=== PATIENT | male | born 1975 | race American Indian/Alaskan Native ===

== ENCOUNTER 2017-08-07 05:37 | Day surgery (SDC) | payer SELFPAY ==
[2017-08-07] MEDS ORDERED: Sodium Chloride 0.9% 2.5 ML Syringe FLUSH PRN (06:20)
[2017-08-07] MEDS ORDERED: Sodium Chloride 0.9% 10 ML Syringe FLUSH PRN (06:20)
[2017-08-07] MEDS ORDERED: cefOXitin 2 GM in Premix Bag 1 BAG IV ONE (06:20)
[2017-08-07] MEDS ORDERED: Lactated Ringers 1,000 ML IV SCH (06:30)
[2017-08-07] MEDS ORDERED: Bupivacaine 25%/EPINEPHrine/PF 30 ML ONE (06:38)
--- NOTE | 2017-08-07 06:38 | PCM.SN ---
- Free Text/Narrative Note: pt seen, chart reviewed; admitting hp dictated, [id number]; in summary, pt has acute appendicitis, will proceed w appendectomy, lap vs open, r/b dw pt re bleeding/infection/possible drain placement/po abscess/postop course; pt concurs and proceed;
[2017-08-07] MEDS ORDERED: Propofol 200 MG/20 ML SDV ONE ×2 (06:41→08:22)
[2017-08-07] MEDS ORDERED: fentaNYL 100 MCG/2 ML SDV ONE (06:41)
[2017-08-07] MEDS ORDERED: Ondansetron 4 MG/2 ML SDV ONE (06:42)
[2017-08-07] MEDS ORDERED: diphenhydrAMINE 50 MG/ML SDV ONE (06:42)
[2017-08-07] MEDS ORDERED: Rocuronium 10 MG/ML 10 ML Syringe ONE (06:42)
[2017-08-07] MEDS ORDERED: Lidocaine 2% 5 ML SDV ONE (06:42)
[2017-08-07] MEDS ORDERED: Neostigmine Methylsulfate 1 MG/ML 5 ML Syringe ONE (06:42)
[2017-08-07] MEDS ORDERED: Ketorolac 30 MG/ML SDV ONE (06:42)
[2017-08-07] MEDS ORDERED: HYDROmorphone 2 MG/ML Syringe ONE (07:15)
[2017-08-07] MEDS ORDERED: fentaNYL 100 MCG/2 ML SDV IVPUSH PRN (07:38)
--- NOTE | 2017-08-07 07:44 | PCM.PREANE ---
Preanesthetic Assessment - Procedure Proposed Procedure: laparoscopic appendectomy - Anesthesia/Transfusion/Family Hx Anesthesia History: No Prior Anesthesia Family History of Anesthesia Reaction: No - Review of Systems General: No Symptoms Pulmonary: No Symptoms Cardiovascular: No Symptoms Gastrointestinal: Abdominal Pain Neurological: No Symptoms Other: Reports: None - Physical Assessment NPO Status Date: 08/06/17 NPO Status Time: 06:30 O2 Sat by Pulse Oximetry: 95 Respiratory Rate: 18 Vital Signs: Last Vital Signs Temp 37.0 C 08/07/17 06:00 Pulse 72 08/07/17 06:00 Resp 18 08/07/17 06:00 BP 126/78 08/07/17 06:00 Pulse Ox 95 08/07/17 06:00 ASA Class: 1E Mental Status: Alert & Oriented x3 Airway Class: Mallampati = 2 Dentition: Reports: Normal Dentition Thyro-Mental Finger Breadths: 4 Mouth Opening Finger Breadths: 4 ROM/Head Extension: Full Lungs: Clear to Auscultation, Normal Respiratory Effort Cardiovascular: Regular Rate, Regular Rhythm - Allergies Allergies/Adverse Reactions: Allergies Allergy/AdvReac Type Severity Reaction Status Date / Time No Known Allergies Allergy Verified 08/07/17 06:11 - Blood Blood Available: No - Anesthesia Plan Pre-Op Medication Ordered: None - Acknowledgements Anesthesia Type Planned: General Anesthesia Pt an Appropriate Candidate for the Planned Anesthesia: Yes Alternatives and Risks of Anesthesia Discussed w Pt/Guardian: Yes Pt/Guardian Understands and Agrees with Anesthesia Plan: Yes PreAnesthesia Questionnaire - HOME MEDS Home Medications: Home Meds . [No Known Home Meds] 08/07/17 [History] - CURRENT (IN HOUSE) MEDS Current Meds: Current Medications Lactated Ringer's (Ringers, Lactated) 1,000 mls @ 150 mls/hr IV ASDIRECTED KAY Last Admin: 08/07/17 06:33 Dose: 150 mls/hr Sodium Chloride (Saline Flush) 10 ml FLUSH ASDIRECTED PRN PRN Reason: Keep Vein Open Sodium Chloride (Saline Flush) 2.5 ml FLUSH ASDIRECTED PRN PRN Reason: Keep Vein Open Discontinued Medications Diphenhydramine HCl (Benadryl) Confirm Administered Dose 50 mg .ROUTE .STK-MED ONE Stop: 08/07/17 06:43 Fentanyl (Sublimaze) Confirm Administered Dose 100 mcg .ROUTE .STK-MED ONE Stop: 08/07/17 06:42 Glycopyrrolate () Confirm Administered Dose 1 mg .ROUTE .STK-MED ONE Stop: 08/07/17 06:43 Hydromorphone HCl (Dilaudid) Confirm Administered Dose 2 mg .ROUTE .STK-MED ONE Stop: 08/07/17 07:16 Cefoxitin Sodium 2 gm/ Premix 50 mls @ 100 mls/hr IV ONETIME ONE Stop: 08/07/17 06:49 Last Admin: 08/07/17 06:33 Dose: 100 mls/hr Bupivacaine HCl/Epinephrine Bitart (Sensorc Mpf 0.25%-Epi 1:[id number]) Confirm Administered Dose 30 mls @ as directed .ROUTE .STK-MED ONE Stop: 08/07/17 06:39 Ketorolac Tromethamine (Toradol) Confirm Administered Dose 30 mg .ROUTE .STK- MED ONE Stop: 08/07/17 06:43 Lidocaine (Xylocaine-Mpf 2%) Confirm Administered Dose 5 ml .ROUTE .STK-MED ONE Stop: 08/07/17 06:43 Neostigmine Methylsulfate (Neostigmine) Confirm Administered Dose 5 mg .ROUTE .STK-MED ONE Stop: 08/07/17 06:43 Ondansetron HCl (Zofran) Confirm Administered Dose 4 mg .ROUTE .STK-MED ONE Stop: 08/07/17 06:43 Propofol (Diprivan 20 Ml) Confirm Administered Dose 200 mg .ROUTE .STK-MED ONE Stop: 08/07/17 06:42 Rocuronium [place] (Zemuron) Confirm Administered Dose 100 mg .ROUTE .STK-MED ONE Stop: 08/07/17 06:43
[2017-08-07] MEDS ORDERED: ceFAZolin 1 GM Vial ONE (08:04)
--- NOTE | 2017-08-07 08:54 | PCM.OPNOTE ---
- General Post-Op/Procedure Note Date of Surgery/Procedure: 08/07/17 Operative Procedure(s): lap appendectomy and drain placement Findings: appendix is severely scarred down w abd wall and surrounding organs, and dusky in appearance, perforated in any second, though gross perforation is not observed; peritoneal fluid are purulent, like melting cheese and cloudy; a akshat drain was placed; [id number] Pre Op Diagnosis: acute appendicitis Post-Op Diagnosis: acute appendicitis w peritonitis Anesthesia Technique: General ET Tube Primary Surgeon: Bentley Bee Pathology: sent, and peritoneal fluid, gs and c/s Surgical Drain/Tube Type: Louie Brandt Flat Drain Drain/Tube Comments:: keep drain X 7 days at least Complications: None Condition: Good
[2017-08-07] MEDS ORDERED: Ondansetron 4 MG/2 ML SDV IVPUSH PRN (08:56)
--- NOTE | 2017-08-07 09:28 | PCM.POSTAN ---
POST ANESTHESIA ASSESSMENT - MENTAL STATUS Mental Status: Alert - VITAL SIGNS Pulse Rate: 82 SaO2: 92 (O2 2l n/c) Resp Rate: 18 Blood Pressure: 106/61 - RESPIRATORY Respiratory Status: Respiratory Rate WNL, Airway Patent, O2 Saturation Stable, Supplemental Oxygen - CARDIOVASCULAR CV Status: Pulse Rate WNL, Blood Pressure Stable - GASTROINTESTINAL GI Status: No Symptoms - PAIN Pain Score: 0 - POST OP HYDRATION Hydration Status: Adequate & Stable
--- NOTE | 2017-08-07 09:55 | OR ---
SURGEON: Bentley Bee MD DATE OF PROCEDURE: 08/07/2017 PREOPERATIVE DIAGNOSIS: Acute appendicitis. POSTOPERATIVE DIAGNOSIS: Acute appendicitis. PROCEDURE PERFORMED: Laparoscopic appendectomy. COMPLICATIONS: None. FINDINGS: The appendix is totally scarred down to the abdominal wall and to the small bowel, makes this procedure challenging and appendix is very close to perforation and necrosis. The peritoneal fluid is purulent, so a drain was placed. PROCEDURE IN DETAIL: The patient was taken to the operating room and placed in the supine position. Following induction of general endotracheal anesthesia, the patient's abdomen was prepped and draped in the sterile fashion. A time-out has been called. The patient was identified. The procedure was identified. The antibiotics were identified. The procedure then proceeded. The abdomen was prepped and draped in a standard fashion. After assessment of appropriate landmarks, a 12 millimeter trocar was inserted supraumbilically using Optiview and pneumoperitoneum was then achieved. This was followed with placement of 5 millimeter port in the right upper quadrant and another 5 millimeter port infraumbilically. The camera was inserted supraumbilical site and two laparoscopic Barrow retractors were then inserted through the other two sites. Following the cecum, the appendix was located. The appendix was then lifted up, and using a GI stapler the appendix was amputated at the base. And using the GI stapler, the mesoappendix was then amputated. The appendix was retrieved by an endoscopic bag and sent for pathologist. After an appendix was removed and after copious irrigation, a 10 flat CESAR drain was placed to the pelvis and secured to the skin with 2-0 silk. Appendix was sent for specimen and peritoneal fluid was sampled by sampling the appendix. The patient will be at risk for intraabdominal abscess, although appendix is not grossly perforated, but purulent peritoneal fluid looked like pus, suggest the patient will be 23.5% having an intraabdominal abscess. We will keep the drain more than 5 days, likely 7 days before pulling it. This was then followed by re-insertion of the camera to examine the staple line, and hemostasis. The trocars were then removed. The umbilical site was closed with 2-0 Vicryl deep stitch and 4 -0 Vicryl and Dermabond; the other 2 5 mm port sites were closed with 4-0 Vicryl and Dermabond. The patient was then awakened, extubated, and transferred to the recovery room in hemodynamically stable condition. Prior to closing, sponge count and instrument count was correct. Dr. Bee was present throughout the whole procedure. As always, thank you for the kind referral. RAFFY PEREZ /[id number]
[2017-08-07] MEDS: Lactated Ringers 1,000 ML IV SCH ×3 (10:06→21:58)
--- NOTE | 2017-08-07 12:02 | PCM48HPAN ---
Post Anesthesia Note - EVALUATION WITHIN 48HRS OF ANESTHETIC Vital Signs in Normal Range: Yes Patient Participated in Evaluation: Yes Respiratory Function Stable: Yes Airway Patent: Yes Cardiovascular Function Stable: Yes Hydration Status Stable: Yes Pain Control Satisfactory: Yes Nausea and Vomiting Control Satisfactory: Yes Mental Status Recovered: Yes
[2017-08-07] MEDS: Amoxicillin/Clavulanate K 875-125 MG Tab PO SCH ×2 (12:05→21:58)
[2017-08-07] MEDS: Acetaminophen 325 MG Tab PO PRN ×2 (12:05→19:22)
[2017-08-07] MEDS: Acetaminophen/oxyCODONE 325-5 MG Tab PO PRN (21:56)
[2017-08-08] MEDS: Acetaminophen/oxyCODONE 325-5 MG Tab PO PRN ×2 (02:43→13:06)
[2017-08-08] MEDS: Lactated Ringers 1,000 ML IV SCH (05:50)
[2017-08-08] MEDS ORDERED: Ibuprofen 400 MG Tab PO PRN (09:25)
[2017-08-08] MEDS: Amoxicillin/Clavulanate K 875-125 MG Tab PO SCH (09:36)
--- NOTE | 2017-08-10 14:59 | HP ---
DATE OF : 1975 PRIMARY CARE PHYSICIAN: Laila PCP ADMISSION DIAGNOSIS: Transfer from [place] for acute appendicitis. HISTORY OF PRESENT ILLNESS: The patient is a 41-year-old gentleman and complained over an 18-hour history of acute onset of right lower quadrant pain, getting worse, sought help in the emergency room. Workup includes CAT scan, and blood work and blood work was with a white count of 17,000, and CAT scan shows uncomplicated acute appendicitis. The patient was then transferred to our facility. The patient remarked that it never happened before. Pain is 7/10 and also nausea and vomiting. Denied fever, chills, or diarrhea. Denied prior episode. PAST MEDICAL HISTORY: Significant for no diabetes, LA, CVA, or hypertension. SOCIAL HISTORY: The patient likes to drink and denied tobacco use. PAST SURGICAL HISTORY: No abdominal surgery. FAMILY HISTORY: Noncontributory. PHYSICAL EXAMINATION: GENERAL: A very pleasant, nice gentleman, in fact smiled to doctor, in no acute distress. HEENT: Normocephalic, atraumatic. Sclerae anicteric. LUNGS: Clear to auscultation. HEART: Regular rate and rhythm. ABDOMEN: Soft, nondistended. No pulsating, tender midline abdominal structure. An obvious umbilical hernia with bulging skin and exquisite tenderness on the right lower quadrant at McBurney's point. No rebound tenderness. No Rovsing's sign. LABORATORY DATA: Blood work upon transfer, white count was 17,000, and CAT scan shows acute appendicitis, uncomplicated, according to the reading. The reading does not specify how to make the diagnosis, does not specify whether the appendix is big or thick wall or the location. It just says uncomplicated. IMPRESSION/PLAN: CAT scan, blood work, and history and physical consistent with acute appendicitis. The patient would benefit from surgical intervention. Risks and benefits were discussed with the patient, including bleeding, infection, and damage to nearby organs. If the appendix is perforated and if changed to open surgery because of obesity, (the patient has BMI of 36), and if it is perforated, the patient may have the wound left open for dressing change and drain placement, and the risks of abdominal abscess [place] 23.5% [place]. This all has been discussed with the patient. The patient concurred to proceed as planned. We will start with IV antibiotic, put on IV fluids, get a consent, and proceed with abdominal surgery for laparoscopic appendectomy versus open. RAFFY / CHRIS /[id number]
== END 2017-08-08 13:55 | disposition home or self-care (01) ==
LOC: MW.SDS 05:37 → MW.MS 06:17 → MW.SDS 08-08 13:55
PROVIDERS: ATTEND Surgery
DX: K35.80 Unspecified acute appendicitis (principal)
CPT/HCPCS: 44970; 87070; 87075; 87077; 87186; 87205; A9270; C1776; J1170; J1200; J1885; J2405; J3010; J7120; 00840; 88304; J0690; J2704